=== PATIENT | male | born 2000 | race African-American/Black ===

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

== ENCOUNTER 2023-04-21 21:43 | Emergency (ER) | payer MEDICAID, OTHER ==
[~2023-04-21] VITALS: Ht 170.2 cm; Wt 86.0 kg
[2023-04-21 22:34] VITALS: BP 139/79; PULSE 93; RESP 18; O2SAT 100
== END 2023-04-21 23:13 | disposition left against medical advice (07) ==
LOC: ER 21:45
DX: M79.602 Pain in left arm (principal); M79.605 Pain in left leg; M79.641 Pain in right hand; Z53.21 Procedure and treatment not carried out due to patient leaving prior to being seen by health care provider